=== PATIENT | male | born 1975 | race Caucasian/White ===

== ENCOUNTER 2016-11-02 10:46 | Emergency (ER) | payer MEDICARE ==
[2016-11-02] MEDS ORDERED: BENADRYL 50 MG/ML IV ONE (11:09)
[2016-11-02] MEDS ORDERED: DUONEB 0.5-3 MG/3 ml Neb IH ONE ×2 (11:09→11:20)
[2016-11-02] MEDS ORDERED: EPINEPHRINE 1MG/ML AMP IM ONE (11:09)
[2016-11-02] MEDS ORDERED: solu-MEDROL 125 MG IV ONE (11:09)
[2016-11-02] MEDS ORDERED: Pepcid 20 MG VIAL IV ONE ×2 (11:09→11:26)
[2016-11-02] MEDS ORDERED: Sodium Chloride 0.9% 1000 ML 1,000 ML IV SCH (11:15)
--- NOTE | 2016-11-02 11:18 | ERPHSYRPT ---
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 STATES HE HAS UNKNOWN EXPOSURE. HE DENIES DIFFICULTY BREATHING OR SWALLOWING. PATIENT ALSO COMPLAINS OF A PRODUCTIVE COUGH YELLOW SPUTUM. Timing/Duration: week(s) Quality: itchy, painful Severity: severe Location: generalized Possible Causes: no cause identified, insect bite Modifying Factors: Improves With: scratching Associated Symptoms: change in skin texture, hives Allergies/Adverse Reactions: No Known Drug Allergies Allergy (Unverified 11/02/16 11:12) Home Medications: Fluoxetine HCl [Prozac] 20 mg PO DAILY 11/02/16 [History] Morphine Sulfate Cr 15 mg [Ms Contin 15 MG] 15 mg PO HS 11/02/16 [History] Morphine Sulfate Cr 60 mg [Ms Contin 60 mg] 60 mg PO DAILY 11/02/16 [ History] Omeprazole 20 MG [Prilosec 20 mg] 20 mg PO DAILY 11/02/16 [History] Trazodone HCl [Desyrel] 50 mg PO HS 11/02/16 [History] - Review of Systems Constitutional: No Fever, No Chills Eyes: No Symptoms Ears, Nose, & Throat: No Symptoms Respiratory: No Cough, No Dyspnea Cardiac: No Symptoms, No Chest Pain, No Edema, No Syncope Abdominal/Gastrointestinal: No Symptoms, No Abdominal Pain, No Nausea, No Vomiting, No Diarrhea Genitourinary Symptoms: No Symptoms, No Dysuria Musculoskeletal: No Symptoms, No Back Pain, No Neck Pain Skin: Skin Lesions, No Rash Neurological: No Dizziness, No Focal Weakness, No Sensory Changes Psychological: No Symptoms Endocrine: No Symptoms All Other Systems: Reviewed and Negative - Nursing Vital Signs Nursing Vital Signs: Initial Vital Signs Temperature 98.5 F 11/02/16 10:53 Pulse Rate 98 H 11/02/16 10:53 Respiratory Rate 20 11/02/16 10:53 Blood Pressure 126/69 11/02/16 10:53 O2 Sat by Pulse Oximetry 97 11/02/16 10:53 Pain Scale Pain Intensity 7 - Physical Exam General Appearance: mild distress Eye Exam: PERRL/EOMI, eyes nml inspection Ears, Nose, Throat Exam: normal ENT inspection Neck Exam: normal inspection, non-tender, supple, full range of motion Respiratory Exam: wheezing Cardiovascular Exam: regular rate/rhythm, normal heart sounds Gastrointestinal/Abdomen Exam: soft, normal bowel sounds, mass, No tenderness Back Exam: normal inspection, normal range of motion, No CVA tenderness, No vertebral tenderness Neurologic Exam: alert, oriented x 3, cooperative, 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 nml as tested Skin Exam: other (GENERALIZED HIVES, WITH ERYTHEMA) SpO2 Interpretation: normal SpO2: 97 Oxygen Delivery: Room Air Ordered Tests: Active Orders 24 hr Category Date Time Status Manager Nursing STAT Care 11/02/16 11:10 Active IV Insertion STAT Care 11/02/16 11:09 Active CHEST 1 VIEW (PORTABLE) Stat Exams 11/02/16 12:03 Taken UA W/ MICROSCOPIC Stat Lab 11/02/16 12:20 Results Respiratory Nebulizer STAT RT 11/02/16 11:10 Completed Medication Summary Generic Name Dose Route Start Last Admin Trade Name Freq PRN Reason Stop Dose Admin Sodium Chloride 1,000 mls @ 250 mls/hr 11/02/16 11:15 11/02/16 11:31 Sodium Chloride 0.9% 1000 Ml IV 12/02/16 11:14 250 mls/hr .Q4H JAZZY Administration Sodium Chloride 1,000 mls @ 999 mls/hr 11/02/16 12:09 11/02/16 12:22 Sodium Chloride 0.9% 1000 Ml IV 11/02/16 13:09 999 mls/hr .Q1H1M STA Administration Discontinued Medications Generic Name Dose Route Start Last Admin Trade Name Freq PRN Reason Stop Dose Admin Albuterol/Ipratropium 3 ml 11/02/16 11:09 11/02/16 11:20 Duoneb 0.5-3 Mg/3 Ml Neb IH 11/02/16 11:10 3 ml STAT ONE Administration Albuterol/Ipratropium Confirm 11/02/16 11:20 Duoneb 0.5-3 Mg/3 Ml Neb Administered 11/02/16 11:21 Dose 3 ml IH .STK-MED ONE Diphenhydramine HCl 75 mg 11/02/16 11:09 11/02/16 11:32 Benadryl 50 Mg/Ml IV 11/02/16 11:10 75 mg STAT ONE Administration Diphenhydramine HCl Confirm 11/02/16 11:22 Benadryl 50 Mg/Ml Administered 11/02/16 11:23 Dose 50 mg .ROUTE .STK-MED ONE Epinephrine HCl 0.3 mg 11/02/16 11:09 11/02/16 11:32 Epinephrine 1mg/Ml Amp IM 11/02/16 11:10 0.3 mg STAT ONE Administration Epinephrine HCl Confirm 11/02/16 11:27 Epinephrine 1mg/Ml Amp Administered 11/02/16 11:28 Dose 1 mg .ROUTE .STK-MED ONE Famotidine 20 mg 11/02/16 11:09 11/02/16 11:33 Pepcid 20 Mg Vial IV 11/02/16 11:10 20 mg STAT ONE Administration Famotidine Confirm 11/02/16 11:26 Pepcid 20 Mg Vial Administered 11/02/16 11:27 Dose 20 mg IV .STK-MED ONE Methylprednisolone Sodium Succinate 125 mg 11/02/16 11:09 11/02/16 11:32 Solu-Medrol 125 Mg IV 11/02/16 11:10 125 mg STAT ONE Administration Methylprednisolone Sodium Succinate Confirm 11/02/16 11:27 Solu-Medrol 125 Mg Administered 11/02/16 11:28 Dose 125 mg .ROUTE .STK-MED ONE Lab/Rad Data: Laboratory Results 11/02/16 Range/Units 12:20 Ur Collection Type CLEAN CATCH Urine Color ORANGE (YELLOW) Urine Appearance CLEAR (CLEAR) Urine pH 5.0 (5-6) Ur Specific [place] 1.020 (1.005-1.025) Urine Protein TRACE (Negative) Urine Ketones SMALL (NEGATIVE) Urine Blood NEGATIVE (0-5) [place]/ul Urine Nitrite NEGATIVE (NEGATIVE) Urine Bilirubin NEGATIVE (NEGATIVE) Urine Urobilinogen 1 (0-1) mg/dL Ur Leukocyte Esterase TRACE (NEGATIVE) Urine Microscopic RBC 0-2 (0-2) /HPF Urine Microscopic WBC 2-5 (0-5) /HPF Ur Epithelial Cells FEW (FEW) /HPF Urine Bacteria FEW (NEGATIVE) /HPF Urine Mucus MANY (NEGATIVE) /HPF Urine Glucose 250 (NEGATIVE) mg/dL Specimen Received 11-02 1215 - Progress Progress: improved Progress Note: 11/02/16 11:16 PATIENT GIVEN EPI 0.3MG IM 1:1000, IV NORMAL SALINE 250ML/HR, BENADRYL 75MG, PEPCID 20MG, SOLUMEDROL 125MG IV Counseled pt/family regarding: diagnosis, need for follow-up, rad results - Departure Time of Disposition: 13:00 Departure Disposition: Home Clinical Impression: ALLERGIC REACTION, ACUTE BRONCHITIS Condition: Stable Critical Care Time: No Additional Instructions: TAKE OVER THE COUNTER BENADRYL 50MG EVERY 4 HOURS FOR ITCHING NEEDED. PREDNISONE 20MG, 60MG DAYS 1-3, 40MG DAYS 4-5. CALL YOUR PRIMARY CARE PHYSICIAN TOMORROW TO SCHEDULE A FOLLOWUP APPOINTMENT. ANTIBIOTIC ZITHROMAX 250MG, 2 TABLETS DAY 1, THEN 1 TABLET DAILY FOR 4 DAYS. TYLENOL #3 EVERY 4 HOURS FOR PAIN. Prescriptions: Codeine Phosphate/APAP #3 [Tylenol #3 Tablet] 1 tab PO Q4H PRN PRN #10 tablet PRN Reason: Pain Azithromycin 250 mg [Zithromax 250 MG TABLET] 250 mg PO ZPACK #6 tablet Prednisone 20 mg [Deltasone 20 mg] 20 mg PO DAILY #13 tablet
[2016-11-02] MEDS ORDERED: BENADRYL 50 MG/ML ONE (11:22)
[2016-11-02] MEDS ORDERED: Sodium Chloride 0.9% 1000 ML 1,000 ML ONE (11:27)
[2016-11-02] MEDS ORDERED: solu-MEDROL 125 MG ONE (11:27)
[2016-11-02] MEDS ORDERED: EPINEPHRINE 1MG/ML AMP ONE (11:27)
[2016-11-02] MEDS ORDERED: Sodium Chloride 0.9% 1000 ML 1,000 ML IV STA (12:09)
[2016-11-02 12:45] LABS: Bilirubin NEGATIVE (NEGATIVE); Blood NEGATIVE Ery/ul (0-5); COMPLETE URINE MICROSCOPIC? YES; Collection Type CLEAN CATCH; Glucose 250 mg/dL (NEGATIVE); Leukocyte Esterase TRACE (NEGATIVE); Mucus MANY /HPF (NEGATIVE)
[2016-11-02 12:46] LABS: ADD URINE CULTURE? NO (NO); Bacteria FEW /HPF (NEGATIVE); Epithelial Cells FEW /HPF (FEW)
[2016-11-02 13:08] VITALS: BP 115/66; PULSE 78; O2SAT 98
--- NOTE | 2016-11-02 18:51 | XRAY ---
Indication: Cough. Comparison: None Portable chest demonstrates minimal bibasilar infiltrates/atelectasis. Remaining heart and lungs unremarkable. Bony thorax intact with lower cervical fusion surgery.
== END 2016-11-02 13:09 | disposition home or self-care (01) ==
LOC: ED 10:46
DX: T78.40XA Allergy, unspecified, initial encounter (principal); J20.9 Acute bronchitis, unspecified
CPT/HCPCS: 36000; 71010; 81000; 93041; 94640; 96360; 96361; 96372; 96374; 96375; 99284; J0171; J1200; J2930; A9270-GY

== ENCOUNTER 2016-11-04 05:10 | Emergency (ER) | payer MEDICARE ==
[2016-11-04 05:17] VITALS: O2SAT 97
[2016-11-04] MEDS ORDERED: DUONEB 0.5-3 MG/3 ml Neb IH ONE ×2 (05:30→05:40)
--- NOTE | 2016-11-04 05:36 | ERPHSYRPT ---
- History of Present Illness Time Seen by Provider: 11/04/16 05:20 Source: patient Exam Limitations: clinical condition Patient Subjective Stated Complaint: Pt sts allergic reaction since last night worsening overnight with itching all over body and feeling like his throat is swollen and painful. Seen last week for the same. Triage Nursing Assessment: Pt alert, oriented, answers all questions appropriately. Skin p/w/d, resps non-labored. Swelling noted to lower lip. Resps non-labored. Red welts noted to upper chest and around hair line. Physician History: PATIENT WITH A HISTORY OF COPD, CIRRHOSIS WAS SEEN, EVALUATED AND TREATED FOR HIVES AND BUG BITES IN EMERGENCY 2 DAYS AGO WITH UNKNOWN EXPOSURE. TREATED WITH BENADRYL AND PREDNISONE 60MG TO 40MG TAPER OVER 5 DAYS. ALSO TREATED FOR BRONCHITIS. PATIENT STATES HIS THROAT FEELS TIGHT AND HAS SCALP ITCHING. Timing/Duration: gradual onset Severity: moderate ENT Location: throat Prearrival Treatment: over the counter meds, prescription meds Modifying Factors: Improves With: coughing Allergies/Adverse Reactions: No Known Drug Allergies Allergy (Verified 11/04/16 05:18) Home Medications: Fluoxetine HCl [Prozac] 20 mg PO DAILY 11/02/16 [History] Morphine Sulfate Cr 15 mg [Ms Contin 15 MG] 15 mg PO HS 11/02/16 [History] Morphine Sulfate Cr 60 mg [Ms Contin 60 mg] 60 mg PO DAILY 11/02/16 [ History] Omeprazole 20 MG [Prilosec 20 mg] 20 mg PO DAILY 11/02/16 [History] Trazodone HCl [Desyrel] 50 mg PO HS 11/02/16 [History] Hx Tetanus, Diphtheria Vaccination/Date Given: No Hx Influenza Vaccination/Date Given: No Hx Pneumococcal Vaccination/Date Given: No Immunizations Up to Date: Yes - Review of Systems Constitutional: No Symptoms Eyes: No Symptoms Ears, Nose, & Throat: Other (THROAT THIGHTNESS) Respiratory: Wheezing Cardiac: No Symptoms Skin: Rash, Skin Lesions, Other (BUG BITES) - Past Medical History Pertinent Past Medical History: Yes Neurological History: No Pertinent History ENT History: No Pertinent History Cardiac History: No Pertinent History Respiratory History: Emphysema, Pulmonary Embolism, Other Endocrine Medical History: No Pertinent History Musculoskeletal History: Other GI Medical History: Cirrhosis, Pancreatitis, Other History: No Pertinent History Psycho-Social History: No Pertinent History Male Reproductive Disorders: No Pertinent History Other Medical History: barrets esophogus, - Past Surgical History Past Surgical History: Yes Gastrointestinal: Appendectomy, Cholecystectomy, Hernia Repair Musculoskeletal: Orthopedic Surgery Other Surgical History: neck surgery, toe amputation - Social History Smoking Status: Current every day smoker How long have you smoked: 20 Exposure to second hand smoke: No Drug Use: none Patient Lives Alone: No - Nursing Vital Signs Nursing Vital Signs: Initial Vital Signs Temperature 98.0 F 11/04/16 05:13 Pulse Rate 86 11/04/16 05:13 Respiratory Rate 16 11/04/16 05:13 Blood Pressure 141/90 11/04/16 05:13 O2 Sat by Pulse Oximetry 97 11/04/16 05:13 Pain Scale Pain Intensity 7 - Physical Exam General Appearance: no apparent distress, other (NO AUDIBLE STRIDOR OR WHEEZES) Eye Exam: bilateral eye: normal inspection, PERRL Ear Exam: bilateral ear: auricle normal, canal normal, TM normal Nasal Exam: normal inspection Throat Exam: normal (POSTERIOR PHARYNX WITHOUT ANGIOEDEMA) Neck Exam: normal inspection, non-tender Cardiovascular/Respiratory Exam: chest non-tender, wheezing (GOOD AIR EXCHANGE, NO ACCESSORY MUSCLE USE) Skin Exam: normal color, other (THE GENERALIZD HIVES HAVE IMPROVED, NO CHANGE IN BUG BIT SCABS.) SpO2: 97 Oxygen Delivery: Room Air Ordered Tests: Active Orders 24 hr Category Date Time Status Respiratory Nebulizer STAT RT 11/04/16 05:30 Ordered Medication Summary Generic Name Dose Route Start Last Admin Trade Name Freq PRN Reason Stop Dose Admin Albuterol/Ipratropium 3 ml 11/04/16 05:30 Duoneb 0.5-3 Mg/3 Ml Neb IH 11/04/16 05:31 STAT ONE - Progress Progress: improved Progress Note: 11/04/16 05:43 PATIENT GIVEN DUONEB AEROSOL Counseled pt/family regarding: diagnosis, need for follow-up - Departure Time of Disposition: 06:10 Departure Disposition: Home Clinical Impression: BRONCHITIS WITH BRONCHITIS Condition: Stable Critical Care Time: No Referrals: RUBIN VIDAL [Primary Care Provider] - Additional Instructions: CONTINUE ALL CURRENT MEDICATIONS BENADRYL AND PREDNISONE AND ANTIBIOTIC ZITHROMAX. USE ALBUTEROL INHALER NEEDED 2 PUFFS EVERY 4 HOURS FOR DIFFICULTY BREATHING. AVOID SMOKING WHILE HAVING DIFFICULTY BREATHING. CONSULT YOUR PRIMARY CARE PHYSICIAN PHYSICIAN FOR FOLLOWUP. Prescriptions: Albuterol 8 gm Mdi Hfa [Ventolin Hfa MDI] 2 puffs IH Q4HPRN PRN #1 [id number] PRN Reason: DIFFICULTY BREATHING
[2016-11-04 06:19] VITALS: BP 142/91; PULSE 88
== END 2016-11-04 06:11 | disposition home or self-care (01) ==
LOC: ED 05:10
DX: J40 Bronchitis, not specified as acute or chronic (principal)
CPT/HCPCS: 94640; 99283; A9270-GY

== ENCOUNTER 2017-09-13 17:30 | Emergency (ER) | payer MEDICARE ==
[2017-09-13] MEDS ORDERED: TORAdol 30 mg Injection IM ONE (19:14)
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
[2017-09-13] MEDS ORDERED: TORAdol 30 mg Injection ONE ×2 (19:17→19:20)
[2017-09-13 19:33] VITALS: BP 160/89; PULSE 64; O2SAT 97
--- NOTE | 2017-09-14 08:39 | XRAY ---
Indication: Palpable knot and pain following injury 2 days ago. Comparison: None 2 views of the left lower leg demonstrates tiny posterior heel spur and posterior knee fabella. No other bony, articular, or soft tissue abnormalities.
== END 2017-09-13 19:33 | disposition home or self-care (01) ==
LOC: ED 17:30
DX: S80.12XA Contusion of left lower leg, initial encounter (principal); W20.8XXA Other cause of strike by thrown, projected or falling object, initial encounter; Y93.H3 Activity, building and construction; Y99.0 Civilian activity done for income or pay
CPT/HCPCS: 73590; 96372; 99284; J1885